=== PATIENT | female | born 1945 | race Caucasian/White ===

== ENCOUNTER → 2017-06-29 | Outpatient (CLI) | payer MEDICARE, OTHER ==
--- NOTE | 2017-06-29 15:16 | Diagnostic Imaging Report ---
EXAM: CT Chest WITHOUT contrast INDICATION: \[id number] \S\[id number] \S\F/U 5MM PULM NODULES COMPARISON: Chest CTs dated 07/07/2015 and 06/21/2016 TECHNIQUE: Chest was scanned utilizing a multidetector helical scanner from the lung apex through the level of the adrenal glands without administration of IV contrast. Absence of intravenous contrast decreases sensitivity for detection of lymphadenopathy and vascular pathology. Coronal and sagittal reformations were obtained. Routine protocol was performed. IV CONTRAST: None COMPLICATIONS: None RADIATION DOSE: Total DLP: 413.36 mGy*cm Estimated effective dose: (DLP x 0.014 x size factor) mSv CTDIvol has been reviewed. It is below the limits set by the Radiation Protocol Committee (RPC). FINDINGS: LINES/ TUBES: None. LUNGS AND AIRWAYS: Lower lobe predominant fibrotic changes of lungs. Previously noted right upper lobe groundglass opacities are resolved. There are unchanged intrafissural lymph nodes bilaterally, measuring 4 mm and 3 mm in right major fissure and 3 mm in left fissure (series 3, images 41, 33, and 46). Stable 5 mm posterior right base subpleural nodule (series 3, image 80). Airways are normal. PLEURA: The pleural spaces are clear. HEART AND MEDIASTINUM: Left thyroid calcification is again seen. No mediastinal or axillary lymphadenopathy. Scattered mediastinal lymph nodes are unchanged from prior exam. For example stable right paratracheal 1.2 cm node (series 2, image 47). The heart is borderline in size. Evaluation of hilar regions are limited without intravenous contrast. Left ventricular dilatation. There is no pericardial effusion. Mild atherosclerotic calcification of aortic arch and moderate atherosclerotic calcification of coronary arteries. UPPER ABDOMEN: Unremarkable. Cholecystectomy. BONES: Degenerative changes of thoracic spine. SOFT TISSUES: Unremarkable. IMPRESSION: Lower lobe predominant fibrotic changes of the lungs. Stable bilateral intrafissural lymph nodes and posterior right base subpleural nodule when compared to CTs dated 07/07/2015 and 06/21/2016. Signed by: Dr. Fercho Kaba MD on 06/29/2017 3:12 PM
== END ==
LOC: CT 14:06
PROVIDERS: ATTEND Internal Medicine Critical Care Medicine
DX: R91.8 Other nonspecific abnormal finding of lung field (principal)
CPT/HCPCS: 71250